=== PATIENT | female | born 1940 | race Caucasian/White ===

== ENCOUNTER 2019-07-21 08:13 | Inpatient (IN) | payer MEDICARE, MEDICAID ==
[~2019-07-21] VITALS: Ht 162.6 cm; Wt 63.6 kg
[2019-07-21 08:37] LABS: BASOPHILS # (AUTO) 0.1 X10'3 (0-0.2); BASOPHILS % (AUTO) 1.2 % (0-1); EOSINOPHILS # (AUTO) 0.2 X10'3 (0-0.9); EOSINOPHILS % (AUTO) 3.3 % (0-6); HEMATOCRIT 35.6 % (35.0-45.0); HEMOGLOBIN 11.7 g/dl (12.0-16.0); LYMPHOCYTES % (AUTO) 26.5 % (21-51); MEAN CORPUSCULAR HEMOGLOBIN 25.7 PG (27.0-31.0); MEAN CORPUSCULAR HGB CONC 32.9 g/dL (33.0-36.5); MEAN CORPUSCULAR VOLUME 78.2 FL (78-98); MEAN PLATELET VOLUME 6.6 FL (7.4-10.4); MONOCYTES # (AUTO) 1.4 X10'3 (0-0.9); MONOCYTES % (AUTO) 19.3 % (2-12); NEUTROPHILS # (AUTO) 3.7 X10'3 (1.8-7.7); NEUTROPHILS % (AUTO) 49.7 % (42-75); PLATELET COUNT 368 X10'3 (140-440); RED BLOOD COUNT 4.55 X10'6 (4.20-5.60); RED CELL DISTRIBUTION WIDTH 17.4 % (11.5-14.5); WHITE BLOOD COUNT 7.4 X10'3 (4.5-11.0)
[2019-07-21 08:48] LABS: CLARITY,URINE CLOUDY (Clear); COLOR,URINE YELLOW (Yellow); GLUCOSE, URINE NEGATIVE (Neg); KETONES,URINE TRACE mg/dl (Neg); LEUKOCYTE ESTERASE ,URINE NEGATIVE (Neg); NITRITES, URINE NEGATIVE (Neg); OCCULT BLOOD,URINE NEGATIVE (Neg); PROTEIN,URINE NEGATIVE (Neg); UROBILINOGEN,URINE 0.2 E.U/dL (0.2-1.0)
[2019-07-21 08:48] LABS: PARTIAL THROMBOPLASTIN TIME 32 SECONDS (22-32)
[2019-07-21 08:51] LABS: ALANINE AMINOTRANSFERASE 15 U/L (12-78); ALBUMIN/GLOBULIN RATIO 0.9 (1.1-1.5); ALKALINE PHOSPHATASE 75 IU/L (46-116); ANION GAP 5 (8-16); ASPARTATE AMINO TRANSFERASE 14 U/L (10-37); BILIRUBIN,TOTAL 0.2 MG/DL (0.1-1.0); BLOOD UREA NITROGEN 16 MG/DL (7-18); BUN/CREATININE RATIO 14.3 (6.6-38.0); CALCIUM 8.5 MG/DL (8.5-10.1); CHLORIDE 97 MMOL/L (99-107); CREATININE 1.12 MG/DL (0.40-0.90); GLUCOSE 85 MG/DL (70-104); POTASSIUM 4.8 MMOL/L (3.5-5.1); SODIUM 131 MMOL/L (135-145); TOTAL PROTEIN 6.5 G/DL (6.4-8.2); eGFR 47 ML/MIN
[2019-07-21 08:52] LABS: ETHANOL < 0.010 GM/DL (0.0-0.010)
[2019-07-21 08:52] LABS: UA COLLECTION TYPE CLN CATCH MIDSTREAM; URINE AMPHETAMINE SCREEN NEGATIVE (Neg); URINE BARBITUATE SCREEN POSITIVE (Neg); URINE BENZODIAZEPINES SCREEN NEGATIVE (Neg); URINE CANNABINOID SCREEN NEGATIVE (Neg); URINE COCAINE SCREEN NEGATIVE (Neg); URINE METHADONE SCREEN NEGATIVE (Neg); URINE OPIATE SCREEN NEGATIVE (Neg); URINE PHENCYCLIDINE SCREEN NEGATIVE (Neg)
[2019-07-21 08:55] LABS: BACTERIA,URINE 3+ /HPF (Neg); RBC,URINE NONE SEEN /HPF (0-2); RENAL CELLS, URINE FEW /HPF; SQUAMOUS EPITHELIAL CELL,UR MANY /LPF (FEW); WBC,URINE 0-4 /HPF (0-4)
--- NOTE | 2019-07-21 09:18 | NUR ---
for any questions call Katia [phone]. she is the admin for pts facility and will picker and packer pt if dcd home
[2019-07-21] MEDS ORDERED: aspirin 325mg tablet PO ONE (09:20)
--- NOTE | 2019-07-21 10:04 | NUR ---
Spoke to Katia informed her of pt. status and that pt. will be admitted.
[2019-07-21] MEDS ORDERED: mag hydrox/Alum hydrox/simeth 30ml oral suspension PO PRN (10:10)
[2019-07-21] MEDS ORDERED: magnesium Cl slow-release 64mg tablet PO PRN (10:10)
[2019-07-21] MEDS ORDERED: acetaminophen 325mg tablet PO PRN ×2 (10:10)
[2019-07-21] MEDS ORDERED: potassium Cl 20 mEq SR tablet PO PRN ×2 (10:10)
[2019-07-21] MEDS ORDERED: HYDROcodone/acetaminophen 5mg/325mg tablet PO PRN (10:10)
[2019-07-21] MEDS ORDERED: magnesium hydroxide 30ml (MOM) UD suspension PO PRN (10:10)
[2019-07-21] MEDS ORDERED: magnesium 2GM in 50ml NS 50 ML IV PRN (10:10)
[2019-07-21] MEDS ORDERED: magnesium 4gm in 100ml NS 100 ML IV PRN (10:10)
[2019-07-21] MEDS ORDERED: ondansetron/PF 4mg/2ml inj IV PRN (10:10)
[2019-07-21] MEDS ORDERED: potassium CL 10mEq/100ml bag 100 ML IV PRN ×2 (10:10)
[2019-07-21] MEDS ORDERED: DIVA-74 PO (10:41)
[2019-07-21] MEDS ORDERED: GABA-532 PO (10:41)
[2019-07-21] MEDS ORDERED: OMEP20CA15 PO (10:41)
[2019-07-21] MEDS ORDERED: CARV6.2555 PO (10:41)
[2019-07-21] MEDS ORDERED: LORA-660 PO (10:41)
[2019-07-21] MEDS ORDERED: SYN0.088T PO (10:41)
[2019-07-21] MEDS ORDERED: LACT1CAP57 PO (10:41)
[2019-07-21] MEDS ORDERED: DOCU100C40 PO (10:41)
[2019-07-21] MEDS ORDERED: PRIM50TA27 PO (10:41)
[2019-07-21] MEDS ORDERED: IPRA4AER IH (10:58)
[2019-07-21] MEDS ORDERED: GABA-534 PO (10:58)
[2019-07-21] MEDS ORDERED: LISI-600 PO (10:58)
[2019-07-21] MEDS ORDERED: OLAN5TAB5 PO (10:58)
[2019-07-21] MEDS ORDERED: CYCL-394 PO (10:58)
[2019-07-21] MEDS ORDERED: FLUT1DIS INH (10:58)
[2019-07-21] MEDS ORDERED: ACET650S13 PO (10:58)
[2019-07-21] MEDS ORDERED: POLY17PO10 PO (10:58)
[2019-07-21] MEDS ORDERED: ROPI1TAB6 PO (10:58)
[2019-07-21] MEDS ORDERED: TRAZ-251 PO (10:58)
[2019-07-21] MEDS ORDERED: TRAM50TA2 PO (10:58)
[2019-07-21 11:00] VITALS: BP 116/55
[2019-07-21] MEDS ORDERED: MELA5TAB12 PO (11:00)
[2019-07-21] MEDS ORDERED: LISI-643 PO (11:33)
[2019-07-21] MEDS ORDERED: CARV12.529 PO (11:33)
[2019-07-21] MEDS ORDERED: LEVO25TA2 PO (11:33)
[2019-07-21 12:42] LABS: CHOL/HDL RATIO 3.4 (0.00-4.99); CHOLESTEROL 147 MG/DL (0-200); HDL CHOLESTEROL 43 MG/DL (35-60); LDL CHOLESTEROL 88 MG/DL (50-100); TRIGLYCERIDES 117 MG/DL (20-135)
[2019-07-21] MEDS: atorvastatin 20mg tablet PO SCH (13:44)
[2019-07-21] MEDS: divalproex sodium 250mg tablet PO SCH ×2 (13:44→20:58)
[2019-07-21] MEDS: cyclobenzaprine 10mg tablet PO SCH ×2 (13:44→20:56)
[2019-07-21] MEDS: nystatin 15 GM powder TP SCH ×2 (13:45→21:01)
[2019-07-21] MEDS: traMADol 50MG tablet PO SCH ×2 (13:45→20:57)
[2019-07-21] MEDS ORDERED: albuterol 2.5 MG/3 ML nebule NEB SCH (15:00)
[2019-07-21] MEDS: ipratropium/albuterol 3ml nebule NEB SCH ×2 (15:00→19:45)
[2019-07-21] MEDS: primidone 50mg tablet PO SCH ×2 (16:04→23:39)
--- NOTE | 2019-07-21 17:23 | NUR ---
Tele Neuro consult done.
[2019-07-21 18:00] VITALS: BP 125/72
--- NOTE | 2019-07-21 18:30 | NUR ---
Problems reprioritized. Patient report given, questions answered & plan of care reviewed with Kaycee BEDOYA.
--- NOTE | 2019-07-21 18:31 | NUR ---
Patient in room ORTHO 4012. I have received report from Taylor BEDOYA and had the opportunity to ask questions and assume patient care.
[2019-07-21] MEDS: budesonide 0.5mg/2ml UD nebule IH SCH (19:45)
[2019-07-21] MEDS ORDERED: gabapentin 300mg capsule PO SCH (20:00)
[2019-07-21] MEDS ORDERED: non-formulary drug (Fluticasone/Salmeterol (Advair 100-50 Diskus) 1 PUFFS) INH SCH (20:00)
[2019-07-21] MEDS: docusate sod 100mg capsule PO SCH (20:56)
[2019-07-21] MEDS: carVEDilol 12.5mg tablet PO SCH (20:56)
[2019-07-21] MEDS: gabapentin 400mg capsule PO SCH (20:58)
[2019-07-21] MEDS: Melatonin 3mg tablet PO SCH (20:59)
[2019-07-21] MEDS: traZODone 50mg tablet PO SCH (21:00)
[2019-07-21] MEDS: ROPINIRole 1mg tablet PO SCH (21:00)
[2019-07-21] MEDS ORDERED: gabapentin 400mg capsule PO SCH (21:00)
[2019-07-21] MEDS: K and/or MAG REPLACEMENT MC SCH (21:08)
[2019-07-21 22:00] VITALS: BP 97/61
[2019-07-21] MEDS: HYDROcodone/acetaminophen 10/325mg tab PO PRN (22:58)
[2019-07-22] VITALS (8 sets, daily range): BP systolic 94–136; BP diastolic 45–75
[2019-07-22] MEDS: traMADol 50MG tablet PO SCH ×4 (02:33→20:34)
[2019-07-22] MEDS: cyclobenzaprine 10mg tablet PO SCH ×4 (02:34→20:33)
[2019-07-22 03:36] LABS: COLOR,URINE YELLOW (Yellow); UA COLLECTION TYPE STRAIGHT CATH
[2019-07-22 03:37] LABS: CLARITY,URINE SLIGHTLY CLOUDY (Clear); GLUCOSE, URINE NEGATIVE (Neg); KETONES,URINE NEGATIVE (Neg); LEUKOCYTE ESTERASE ,URINE NEGATIVE (Neg); NITRITES, URINE NEGATIVE (Neg); OCCULT BLOOD,URINE NEGATIVE (Neg); PROTEIN,URINE NEGATIVE (Neg); UROBILINOGEN,URINE 0.2 E.U/dL (0.2-1.0)
[2019-07-22 03:38] LABS: BACTERIA,URINE 3+ /HPF (Neg); RBC,URINE NONE SEEN /HPF (0-2); SQUAMOUS EPITHELIAL CELL,UR NONE SEEN /LPF (FEW); WBC CLUMPS,URINE FEW /HPF (NEGATIVE); WBC,URINE 0-4 /HPF (0-4)
[2019-07-22] MEDS: ipratropium/albuterol 3ml nebule NEB SCH ×4 (04:27→20:20)
[2019-07-22 05:47] LABS: BASOPHILS # (AUTO) 0.1 X10'3 (0-0.2); BASOPHILS % (AUTO) 1.1 % (0-1); EOSINOPHILS # (AUTO) 0.2 X10'3 (0-0.9); EOSINOPHILS % (AUTO) 4.1 % (0-6); HEMATOCRIT 34.1 % (35.0-45.0); LYMPHOCYTES % (AUTO) 33.5 % (21-51); MEAN CORPUSCULAR HEMOGLOBIN 25.4 PG (27.0-31.0); MEAN CORPUSCULAR HGB CONC 32.3 g/dL (33.0-36.5); MEAN CORPUSCULAR VOLUME 78.5 FL (78-98); MEAN PLATELET VOLUME 6.6 FL (7.4-10.4); MONOCYTES # (AUTO) 1.2 X10'3 (0-0.9); MONOCYTES % (AUTO) 19.9 % (2-12); NEUTROPHILS # (AUTO) 2.4 X10'3 (1.8-7.7); NEUTROPHILS % (AUTO) 41.4 % (42-75); PLATELET COUNT 343 X10'3 (140-440); RED BLOOD COUNT 4.34 X10'6 (4.20-5.60); RED CELL DISTRIBUTION WIDTH 16.9 % (11.5-14.5); WHITE BLOOD COUNT 5.9 X10'3 (4.5-11.0)
[2019-07-22] MEDS: HYDROcodone/acetaminophen 10/325mg tab PO PRN ×3 (05:47→16:11)
[2019-07-22 05:57] LABS: ALBUMIN 2.5 G/DL (3.4-5.0); ANION GAP 3 (8-16); BLOOD UREA NITROGEN 20 MG/DL (7-18); BUN/CREATININE RATIO 29.4 (6.6-38.0); CALCIUM 8.7 MG/DL (8.5-10.1); CHLORIDE 100 MMOL/L (99-107); CREATININE 0.68 MG/DL (0.40-0.90); GLUCOSE 75 MG/DL (70-104); MAGNESIUM 2.1 MG/DL (1.5-2.4); POTASSIUM 5.6 MMOL/L (3.5-5.1); SODIUM 130 MMOL/L (135-145); TOTAL CARBON DIOXIDE 26.7 MMOL/L (24-32); eGFR 84 ML/MIN
--- NOTE | 2019-07-22 06:35 | NUR ---
Problems reprioritized. Patient report given, questions answered & plan of care reviewed with Taylor BEDOYA.
[2019-07-22] MEDS: K and/or MAG REPLACEMENT MC SCH ×2 (08:00→20:00)
[2019-07-22] MEDS: atorvastatin 20mg tablet PO SCH (08:01)
[2019-07-22] MEDS: gabapentin 300mg capsule PO SCH ×2 (08:01→14:54)
[2019-07-22] MEDS: divalproex sodium 250mg tablet PO SCH ×3 (08:02→20:34)
[2019-07-22] MEDS: primidone 50mg tablet PO SCH ×3 (08:02→23:51)
[2019-07-22] MEDS: pantoprazole 40mg Tablet.DR PO SCH (08:02)
[2019-07-22] MEDS: docusate sod 100mg capsule PO SCH ×2 (08:02→20:32)
[2019-07-22] MEDS: lactobacillus rhamnosus 10,000 MMU CELLS/CAPSULE PO SCH (08:03)
[2019-07-22] MEDS: levoTHYROXINE 25mcg tablet PO SCH (08:03)
[2019-07-22] MEDS: loratadine 10mg tablet PO SCH (08:03)
[2019-07-22] MEDS: nystatin 15 GM powder TP SCH ×3 (08:04→20:37)
[2019-07-22] MEDS: aspirin 325mg tablet PO SCH (08:04)
[2019-07-22] MEDS: OLANZapine 5mg rapidly disint. tablet PO SCH (08:04)
[2019-07-22] MEDS: enoxaparin 40mg/0.4ml syringe SUBCUT SCH (08:04)
[2019-07-22] MEDS: polyethylene glycol 3350 17gm powd pack PO SCH (08:05)
[2019-07-22] MEDS: carVEDilol 12.5mg tablet PO SCH ×2 (08:07→20:00)
[2019-07-22] MEDS: lisinopril 10 MG tablet PO SCH (08:07)
[2019-07-22] MEDS: budesonide 0.5mg/2ml UD nebule IH SCH ×2 (08:37→20:20)
--- NOTE | 2019-07-22 12:00 | NUR ---
Patient in room ORTHO 4012. I have received report from REESE BEDOYA and had the opportunity to ask questions and assume patient care.
--- NOTE | 2019-07-22 12:09 | NUR ---
Problems reprioritized. Patient report given, questions answered & plan of care reviewed with Shameka BEDOYA.
--- NOTE | 2019-07-22 17:50 | NUR ---
DOWN TO CT
--- NOTE | 2019-07-22 18:05 | NUR ---
Problems reprioritized. Patient report given, questions answered & plan of care reviewed with MELODY BEDOYA.
--- NOTE | 2019-07-22 18:10 | NUR ---
Patient in room ORTHO 4012. I have received report from Shameka BEDOYA and had the opportunity to ask questions and assume patient care.
[2019-07-22] MEDS: traZODone 50mg tablet PO SCH (20:35)
[2019-07-22] MEDS: Melatonin 3mg tablet PO SCH (20:35)
[2019-07-22] MEDS: gabapentin 400mg capsule PO SCH (20:36)
[2019-07-22] MEDS: ROPINIRole 1mg tablet PO SCH (20:36)
[2019-07-23 02:00] VITALS: BP 96/48
[2019-07-23] MEDS: traMADol 50MG tablet PO SCH ×4 (02:16→21:01)
[2019-07-23] MEDS: ipratropium/albuterol 3ml nebule NEB SCH ×4 (02:17→20:22)
[2019-07-23] MEDS: cyclobenzaprine 10mg tablet PO SCH ×3 (02:17→13:59)
[2019-07-23 05:13] LABS: ALBUMIN 2.6 G/DL (3.4-5.0); ANION GAP 5 (8-16); BLOOD UREA NITROGEN 28 MG/DL (7-18); BUN/CREATININE RATIO 36.4 (6.6-38.0); CHLORIDE 95 MMOL/L (99-107); CREATININE 0.77 MG/DL (0.40-0.90); GLUCOSE 94 MG/DL (70-104); POTASSIUM 5.5 MMOL/L (3.5-5.1); SODIUM 129 MMOL/L (135-145); TOTAL CARBON DIOXIDE 29.2 MMOL/L (24-32); eGFR 73 ML/MIN
[2019-07-23 05:15] LABS: BASOPHILS # (AUTO) 0.1 X10'3 (0-0.2); BASOPHILS % (AUTO) 0.8 % (0-1); EOSINOPHILS # (AUTO) 0.4 X10'3 (0-0.9); EOSINOPHILS % (AUTO) 5.8 % (0-6); HEMATOCRIT 32.9 % (35.0-45.0); HEMOGLOBIN 10.8 g/dl (12.0-16.0); LYMPHOCYTES # (AUTO) 1.8 X10'3 (1.1-4.8); MEAN CORPUSCULAR HEMOGLOBIN 25.7 PG (27.0-31.0); MEAN CORPUSCULAR HGB CONC 32.9 g/dL (33.0-36.5); MEAN PLATELET VOLUME 6.6 FL (7.4-10.4); MONOCYTES # (AUTO) 1.4 X10'3 (0-0.9); MONOCYTES % (AUTO) 20.4 % (2-12); NEUTROPHILS # (AUTO) 3.3 X10'3 (1.8-7.7); PLATELET COUNT 358 X10'3 (140-440); RED BLOOD COUNT 4.21 X10'6 (4.20-5.60); RED CELL DISTRIBUTION WIDTH 17.2 % (11.5-14.5); WHITE BLOOD COUNT 6.9 X10'3 (4.5-11.0)
[2019-07-23] MEDS: HYDROcodone/acetaminophen 10/325mg tab PO PRN (05:20)
[2019-07-23 06:00] VITALS: BP 142/67
--- NOTE | 2019-07-23 06:20 | NUR ---
RECEIVED REPORT FROM ELKE OLIVER
--- NOTE | 2019-07-23 06:23 | NUR ---
Problems reprioritized. Patient report given, questions answered & plan of care reviewed with Celia BEDOYA.
[2019-07-23 06:50] LABS: ANISOCYTOSIS 1+; BURR CELLS FEW; MICROCYTOSIS 1+; PLATELET ESTIMATE NORMAL; SCHISTOCYTES FEW; TOTAL CELLS COUNTED 100
[2019-07-23] MEDS: budesonide 0.5mg/2ml UD nebule IH SCH (06:59)
[2019-07-23] MEDS: K and/or MAG REPLACEMENT MC SCH ×2 (07:06→20:00)
[2019-07-23 07:15] LABS: RPR Non Reactive (Non Reactive)
[2019-07-23] MEDS: polyethylene glycol 3350 17gm powd pack PO SCH (07:23)
[2019-07-23] MEDS: pantoprazole 40mg Tablet.DR PO SCH (07:24)
[2019-07-23] MEDS: loratadine 10mg tablet PO SCH (07:24)
[2019-07-23] MEDS: docusate sod 100mg capsule PO SCH ×2 (07:24→21:02)
[2019-07-23] MEDS: carVEDilol 12.5mg tablet PO SCH ×2 (07:25→21:02)
[2019-07-23] MEDS: divalproex sodium 250mg tablet PO SCH ×3 (07:25→21:00)
[2019-07-23] MEDS: lactobacillus rhamnosus 10,000 MMU CELLS/CAPSULE PO SCH (07:25)
[2019-07-23] MEDS: atorvastatin 20mg tablet PO SCH (07:27)
[2019-07-23] MEDS: levoTHYROXINE 25mcg tablet PO SCH (07:28)
[2019-07-23] MEDS: gabapentin 300mg capsule PO SCH ×2 (07:28→13:59)
[2019-07-23] MEDS: primidone 50mg tablet PO SCH ×2 (07:28→15:57)
[2019-07-23] MEDS: lisinopril 10 MG tablet PO SCH (07:29)
[2019-07-23] MEDS: OLANZapine 5mg rapidly disint. tablet PO SCH (07:29)
[2019-07-23] MEDS: enoxaparin 40mg/0.4ml syringe SUBCUT SCH (07:30)
[2019-07-23] MEDS: nystatin 15 GM powder TP SCH ×3 (07:30→21:07)
[2019-07-23] MEDS: aspirin 325mg tablet PO SCH (07:34)
[2019-07-23 10:00] VITALS: BP 116/48
--- NOTE | 2019-07-23 13:50 | NUR ---
gave pt morning medications, pt has been super sleepy and not able to eat or work well w/physical therapy, continue to monitor and educate pt on her medications, and notified hospitalist
[2019-07-23 14:00] VITALS: BP 97/42
--- NOTE | 2019-07-23 16:08 | NUR ---
gave report to power valencia
[2019-07-23] MEDS: normal saline 1000ml 1,000 ML IV SCH (16:50)
[2019-07-23 18:00] VITALS: BP 117/55
[2019-07-23] MEDS: Melatonin 3mg tablet PO SCH (21:01)
[2019-07-23] MEDS: traZODone 50mg tablet PO SCH (21:01)
[2019-07-23] MEDS: ROPINIRole 1mg tablet PO SCH (21:01)
[2019-07-23] MEDS: gabapentin 400mg capsule PO SCH (21:02)
[2019-07-23 22:00] VITALS: BP 129/53
[2019-07-24] MEDS: primidone 50mg tablet PO SCH ×4 (00:45→23:25)
[2019-07-24] MEDS: traMADol 50MG tablet PO SCH ×4 (01:00→20:20)
[2019-07-24] MEDS: ipratropium/albuterol 3ml nebule NEB SCH ×4 (02:17→20:18)
--- NOTE | 2019-07-24 06:32 | NUR ---
Problems reprioritized. Patient report given, questions answered & plan of care reviewed with ELKE HO.
[2019-07-24 06:34] LABS: BASOPHILS % (AUTO) 0.6 % (0-1); EOSINOPHILS # (AUTO) 0.3 X10'3 (0-0.9); EOSINOPHILS % (AUTO) 4.7 % (0-6); HEMATOCRIT 33.2 % (35.0-45.0); HEMOGLOBIN 10.8 g/dl (12.0-16.0); LYMPHOCYTES # (AUTO) 1.5 X10'3 (1.1-4.8); LYMPHOCYTES % (AUTO) 21.3 % (21-51); MEAN CORPUSCULAR HEMOGLOBIN 25.2 PG (27.0-31.0); MEAN CORPUSCULAR HGB CONC 32.6 g/dL (33.0-36.5); MEAN CORPUSCULAR VOLUME 77.3 FL (78-98); MEAN PLATELET VOLUME 6.8 FL (7.4-10.4); MONOCYTES # (AUTO) 1.2 X10'3 (0-0.9); MONOCYTES % (AUTO) 16.9 % (2-12); NEUTROPHILS # (AUTO) 4.1 X10'3 (1.8-7.7); NEUTROPHILS % (AUTO) 56.5 % (42-75); PLATELET COUNT 358 X10'3 (140-440); RED BLOOD COUNT 4.29 X10'6 (4.20-5.60); RED CELL DISTRIBUTION WIDTH 17.2 % (11.5-14.5); WHITE BLOOD COUNT 7.2 X10'3 (4.5-11.0)
[2019-07-24 06:49] LABS: ALBUMIN 2.5 G/DL (3.4-5.0); ANION GAP 2 (8-16); BLOOD UREA NITROGEN 21 MG/DL (7-18); BUN/CREATININE RATIO 31.8 (6.6-38.0); CALCIUM 8.8 MG/DL (8.5-10.1); CHLORIDE 101 MMOL/L (99-107); CREATININE 0.66 MG/DL (0.40-0.90); GLUCOSE 83 MG/DL (70-104); MAGNESIUM 2.1 MG/DL (1.5-2.4); SODIUM 133 MMOL/L (135-145); eGFR 87 ML/MIN
[2019-07-24 07:14] VITALS: BP 124/48
[2019-07-24] MEDS: gabapentin 300mg capsule PO SCH ×2 (07:43→13:58)
[2019-07-24] MEDS: polyethylene glycol 3350 17gm powd pack PO SCH (07:43)
[2019-07-24] MEDS: atorvastatin 20mg tablet PO SCH (07:44)
[2019-07-24] MEDS: loratadine 10mg tablet PO SCH (07:44)
[2019-07-24] MEDS: aspirin 325mg tablet PO SCH (07:44)
[2019-07-24] MEDS: carVEDilol 12.5mg tablet PO SCH ×2 (07:44→20:16)
[2019-07-24] MEDS: docusate sod 100mg capsule PO SCH ×2 (07:44→20:00)
[2019-07-24] MEDS: lisinopril 10 MG tablet PO SCH (07:44)
[2019-07-24] MEDS: pantoprazole 40mg Tablet.DR PO SCH (07:44)
[2019-07-24] MEDS: levoTHYROXINE 25mcg tablet PO SCH (07:44)
[2019-07-24] MEDS: K and/or MAG REPLACEMENT MC SCH ×2 (07:45→20:00)
[2019-07-24] MEDS: enoxaparin 40mg/0.4ml syringe SUBCUT SCH (07:45)
[2019-07-24] MEDS: nystatin 15 GM powder TP SCH ×3 (07:45→20:21)
[2019-07-24] MEDS: lactobacillus rhamnosus 10,000 MMU CELLS/CAPSULE PO SCH (07:45)
[2019-07-24] MEDS: divalproex sodium 250mg tablet PO SCH ×3 (07:47→20:15)
[2019-07-24] MEDS: OLANZapine 5mg rapidly disint. tablet PO SCH (07:47)
[2019-07-24] MEDS: budesonide 0.5mg/2ml UD nebule IH SCH ×2 (08:04→20:18)
[2019-07-24 12:02] VITALS: BP 135/58
[2019-07-24] MEDS: normal saline 1000ml 1,000 ML IV SCH (12:19)
[2019-07-24 16:08] VITALS: BP 124/74
[2019-07-24 18:00] VITALS: BP 125/54
--- NOTE | 2019-07-24 18:20 | NUR ---
Patient in room ORTHO 4012. I have received report from power Marley and had the opportunity to ask questions and assume patient care.
[2019-07-24] MEDS: traZODone 50mg tablet PO SCH (20:16)
[2019-07-24] MEDS: ROPINIRole 1mg tablet PO SCH (20:16)
[2019-07-24] MEDS: gabapentin 400mg capsule PO SCH (20:16)
[2019-07-24] MEDS: Melatonin 3mg tablet PO SCH (20:21)
[2019-07-24 22:00] VITALS: BP 128/35
[2019-07-25] MEDS: traMADol 50MG tablet PO SCH ×3 (02:15→13:19)
[2019-07-25] MEDS: ipratropium/albuterol 3ml nebule NEB SCH ×2 (02:29→09:23)
[2019-07-25 04:15] LABS: BASOPHILS # (AUTO) 0.1 X10'3 (0-0.2); BASOPHILS % (AUTO) 0.9 % (0-1); EOSINOPHILS # (AUTO) 0.4 X10'3 (0-0.9); EOSINOPHILS % (AUTO) 4.4 % (0-6); HEMATOCRIT 34.5 % (35.0-45.0); HEMOGLOBIN 11.3 g/dl (12.0-16.0); LYMPHOCYTES # (AUTO) 1.6 X10'3 (1.1-4.8); LYMPHOCYTES % (AUTO) 19.1 % (21-51); MEAN CORPUSCULAR HEMOGLOBIN 25.4 PG (27.0-31.0); MEAN CORPUSCULAR HGB CONC 32.6 g/dL (33.0-36.5); MEAN CORPUSCULAR VOLUME 77.8 FL (78-98); MEAN PLATELET VOLUME 6.9 FL (7.4-10.4); MONOCYTES # (AUTO) 1.4 X10'3 (0-0.9); MONOCYTES % (AUTO) 17.1 % (2-12); NEUTROPHILS # (AUTO) 4.7 X10'3 (1.8-7.7); NEUTROPHILS % (AUTO) 58.5 % (42-75); PLATELET COUNT 369 X10'3 (140-440); RED BLOOD COUNT 4.44 X10'6 (4.20-5.60); RED CELL DISTRIBUTION WIDTH 17.2 % (11.5-14.5); WHITE BLOOD COUNT 8.1 X10'3 (4.5-11.0)
[2019-07-25 04:21] LABS: ALBUMIN 2.7 G/DL (3.4-5.0); ANION GAP 3 (8-16); BLOOD UREA NITROGEN 23 MG/DL (7-18); BUN/CREATININE RATIO 34.8 (6.6-38.0); CALCIUM 9.1 MG/DL (8.5-10.1); CHLORIDE 98 MMOL/L (99-107); CREATININE 0.66 MG/DL (0.40-0.90); GLUCOSE 87 MG/DL (70-104); MAGNESIUM 1.8 MG/DL (1.5-2.4); POTASSIUM 5.7 MMOL/L (3.5-5.1); SODIUM 131 MMOL/L (135-145); TOTAL CARBON DIOXIDE 30.5 MMOL/L (24-32); eGFR 87 ML/MIN
--- NOTE | 2019-07-25 06:15 | NUR ---
Problems reprioritized. Patient report given, questions answered & plan of care reviewed with ELKE HO.
[2019-07-25 06:26] VITALS: BP 116/66
[2019-07-25 06:45] LABS: ANISOCYTOSIS 1+; MICROCYTOSIS 1+; PLATELET ESTIMATE NORMAL; TOTAL CELLS COUNTED 100
[2019-07-25] MEDS: polyethylene glycol 3350 17gm powd pack PO SCH (08:00)
[2019-07-25] MEDS: docusate sod 100mg capsule PO SCH (08:00)
[2019-07-25] MEDS: nystatin 15 GM powder TP SCH ×2 (08:00→13:00)
[2019-07-25] MEDS: K and/or MAG REPLACEMENT MC SCH (08:00)
[2019-07-25] MEDS: OLANZapine 5mg rapidly disint. tablet PO SCH (08:20)
[2019-07-25] MEDS: enoxaparin 40mg/0.4ml syringe SUBCUT SCH (08:20)
[2019-07-25] MEDS: divalproex sodium 250mg tablet PO SCH ×2 (08:20→13:19)
[2019-07-25] MEDS: gabapentin 300mg capsule PO SCH ×2 (08:20→13:19)
[2019-07-25] MEDS: levoTHYROXINE 25mcg tablet PO SCH (08:20)
[2019-07-25] MEDS: primidone 50mg tablet PO SCH (08:20)
[2019-07-25] MEDS: lactobacillus rhamnosus 10,000 MMU CELLS/CAPSULE PO SCH (08:21)
[2019-07-25] MEDS: loratadine 10mg tablet PO SCH (08:21)
[2019-07-25] MEDS: atorvastatin 20mg tablet PO SCH (08:21)
[2019-07-25] MEDS: lisinopril 10 MG tablet PO SCH (08:21)
[2019-07-25] MEDS: aspirin 325mg tablet PO SCH (08:21)
[2019-07-25] MEDS: carVEDilol 12.5mg tablet PO SCH (08:22)
[2019-07-25] MEDS: normal saline 1000ml 1,000 ML IV SCH (08:22)
[2019-07-25] MEDS: pantoprazole 40mg Tablet.DR PO SCH (08:22)
[2019-07-25] MEDS: budesonide 0.5mg/2ml UD nebule IH SCH (09:23)
[2019-07-25 09:48] VITALS: BP 128/54
--- NOTE | 2019-07-25 11:34 | NUR ---
Initial: Pt admit w/ possible CVA, AMS, and R side paraesthesias per MD. Pt remains non-verbal per MD note; hx psychosis per EMR. Advanced to pureed/thin/heart healthy diet per ARCHITECTURE CONSULTANT/MD recs r/t absence of teeth and PO 75% avg meals meeting needs. LBM 07/23. Receiving electrolyte replacement per protocol. No nutrition concerns at this time. Will continue to monitor. Rec: 1. continue pureed/thin liquid/heart healthy diet per ARCHITECTURE CONSULTANT/MD 2. bowel care as needed 3. wt per rx Addendum: 07/25/19 at [address] Amended: Links added.
[2019-07-25] MEDS ORDERED: TRAM50TA2 PO (13:21)
== END 2019-07-25 14:40 | DRG 91 ==
LOC: ER 08:14 → ED HOLD 10:07 → ORTHO 4S 11:03
PROVIDERS: ADMIT Internal Medicine; ATTEND Family Medicine
DX: G92 Toxic encephalopathy (principal); J96.90 Respiratory failure, unspecified, unspecified whether with hypoxia or hypercapnia; R47.01 Aphasia; J44.9 Chronic obstructive pulmonary disease, unspecified; G89.29 Other chronic pain; M54.5 Low back pain; I10 Essential (primary) hypertension; R29.810 Facial weakness; E03.9 Hypothyroidism, unspecified; G62.9 Polyneuropathy, unspecified; K21.9 Gastro-esophageal reflux disease without esophagitis; G25.81 Restless legs syndrome; E78.5 Hyperlipidemia, unspecified; R13.0 Aphagia; E78.00 Pure hypercholesterolemia, unspecified; F29 Unspecified psychosis not due to a substance or known physiological condition; I25.10 Atherosclerotic heart disease of native coronary artery without angina pectoris; Z88.6 Allergy status to analgesic agent; Z88.5 Allergy status to narcotic agent; Z86.73 Personal history of transient ischemic attack (TIA), and cerebral infarction without residual deficits; Z87.891 Personal history of nicotine dependence; Z88.7 Allergy status to serum and vaccine; I25.2 Old myocardial infarction; Z88.8 Allergy status to other drugs, medicaments and biological substances; Z79.01 Long term (current) use of anticoagulants
CPT/HCPCS: 36415; 70450; 70551; 71045; 72125; 72128; 72131; 73030; 80048; 80053; 80061; 80305; 80320; 81001; 82140; 82607; 82948; 83735; 84300; 84443; 85025; 85610; 85730; 86592; 87077; 87081; 87088; 87186; 92508; 92616; 93005; 93306; 93880; 94640; 94760; 97110; 97112; 97116; 97161; 97530; 99285; G0378; J1650; J7030; J7626

== ENCOUNTER 2019-10-13 09:42 | Emergency (ER) | payer MEDICARE, MEDICAID ==
[~2019-10-13] VITALS: Ht 124.5 cm; Wt 72.7 kg
[~2019-10-13 09:42] MED LIST: ACET650S13 PO; CARV12.529 PO; CYCL-394 PO; DIVA-74 PO; DOCU100C40 PO; FLUT1DIS INH; GABA-532 PO; GABA-534 PO; IPRA4AER IH; LACT1CAP57 PO; LEVO25TA2 PO; LISI-643 PO; LORA-660 PO; MELA5TAB12 PO; OLAN5TAB5 PO; OMEP20CA15 PO; POLY17PO10 PO; PRIM50TA27 PO; ROPI1TAB6 PO; TRAM50TA2 PO; TRAZ-251 PO
[2019-10-13] MEDS ORDERED: normal saline 1000ML IV soln IVB ONE (11:30)
--- NOTE | 2019-10-13 12:51 | NUR ---
Phoned the front desk administrator at the facility where the patient resides to arrange transport to take her back home. She asked if we have evaluated the patient's abdominal bloating. Pt has not reported the bloating but when asked about it she states "yes, I do feel bloated today." Provider Kya made aware of the above concerns.
--- NOTE | 2019-10-13 13:32 | NUR ---
Pt's caregiver from the facility will be here in a few minutes to transport back to the facility where she resides. Pt assisted via w/c to the restroom to void prior to discharge home.
[2019-10-13 13:57] VITALS: BP 119/72
== END 2019-10-13 13:40 | disposition home or self-care (01) ==
LOC: ER 09:42
DX: M84.374A Stress fracture, right foot, initial encounter for fracture (principal); I95.9 Hypotension, unspecified; J44.9 Chronic obstructive pulmonary disease, unspecified; G89.29 Other chronic pain; Z88.0 Allergy status to penicillin; Z88.5 Allergy status to narcotic agent; Z88.8 Allergy status to other drugs, medicaments and biological substances; Z79.899 Other long term (current) drug therapy; W18.30XA Fall on same level, unspecified, initial encounter; Y93.89 Activity, other specified; Y92.89 Other specified places as the place of occurrence of the external cause; Y99.8 Other external cause status
CPT/HCPCS: 73630; 96360; 99285; J7030

== ENCOUNTER 2019-11-20 16:44 | Emergency (ER) | payer MEDICARE, MEDICAID ==
[~2019-11-20] VITALS: Ht 154.9 cm; Wt 68.2 kg
[~2019-11-20 16:44] MED LIST changes: +ACET-75 PO; -ACET650S13 PO; +AMLO-93 PO; +ATOR20TA66 PO; +CALC-1074 PO; -GABA-534 PO; -IPRA4AER IH; -LISI-643 PO; -OLAN5TAB5 PO; -TRAM50TA2 PO; -TRAZ-251 PO
[2019-11-20 17:22] LABS: BASOPHILS # (AUTO) 0.1 X10'3 (0-0.2); BASOPHILS % (AUTO) 1.1 % (0-1); EOSINOPHILS # (AUTO) 0.3 X10'3 (0-0.9); EOSINOPHILS % (AUTO) 4.8 % (0-6); HEMATOCRIT 34.3 % (35.0-45.0); HEMOGLOBIN 11.1 g/dl (12.0-16.0); LYMPHOCYTES # (AUTO) 2.2 X10'3 (1.1-4.8); MEAN CORPUSCULAR HEMOGLOBIN 25.2 PG (27.0-31.0); MEAN CORPUSCULAR HGB CONC 32.2 g/dL (33.0-36.5); MEAN CORPUSCULAR VOLUME 78.1 FL (78-98); MEAN PLATELET VOLUME 6.6 FL (7.4-10.4); MONOCYTES # (AUTO) 0.9 X10'3 (0-0.9); MONOCYTES % (AUTO) 13.2 % (2-12); NEUTROPHILS # (AUTO) 3.1 X10'3 (1.8-7.7); NEUTROPHILS % (AUTO) 46.9 % (42-75); PLATELET COUNT 320 X10'3 (140-440); RED BLOOD COUNT 4.39 X10'6 (4.20-5.60); RED CELL DISTRIBUTION WIDTH 16.3 % (11.5-14.5); WHITE BLOOD COUNT 6.6 X10'3 (4.5-11.0)
[2019-11-20 17:34] LABS: ALANINE AMINOTRANSFERASE 24 U/L (12-78); ALBUMIN 3.1 G/DL (3.4-5.0); ALBUMIN/GLOBULIN RATIO 0.8 (1.1-1.5); ALKALINE PHOSPHATASE 62 IU/L (46-116); ANION GAP 4 (8-16); ASPARTATE AMINO TRANSFERASE 15 U/L (10-37); BILIRUBIN,TOTAL 0.2 MG/DL (0.1-1.0); BLOOD UREA NITROGEN 14 MG/DL (7-18); BUN/CREATININE RATIO 21.5 (6.6-38.0); CHLORIDE 94 MMOL/L (99-107); CREATININE 0.65 MG/DL (0.40-0.90); GLUCOSE 95 MG/DL (70-104); POTASSIUM 4.7 MMOL/L (3.5-5.1); SODIUM 128 MMOL/L (135-145); TOTAL CARBON DIOXIDE 29.9 MMOL/L (24-32); eGFR 88 ML/MIN
--- NOTE | 2019-11-20 18:00 | NUR ---
[facility] [phone]
[2019-11-20 18:01] LABS: LIPASE 167 U/L (73-393)
[2019-11-20] MEDS ORDERED: normal saline 1000ml 1,000 ML IV ONE (18:10)
[2019-11-20] MEDS ORDERED: ondansetron/PF 4mg/2ml inj IV ONE (18:10)
[2019-11-20] MEDS ORDERED: morphine 4 MG/ML inj SYRINge IV ONE (18:10)
--- NOTE | 2019-11-20 23:34 | NUR ---
PHONED PT CAREGIVER AT [phone] TO COME TO PICK PATIENT UP MESSAGE LEFT .
--- NOTE | 2019-11-20 23:38 | NUR ---
PHONED [phone] SPOKE WITH ELISE WHO IS TO DIRECTOR COMMUNICATIONS PATIENT IN 20 MIN . Elise IS AWARE THE PATIENT HAS BEEN DISCHARGED AND WILL BE WAITING IN THE ER LOBBY .
[2019-11-20 23:50] VITALS: BP 134/68
== END 2019-11-20 23:45 | disposition home or self-care (01) ==
LOC: ER 16:45
DX: I12.9 Hypertensive chronic kidney disease with stage 1 through stage 4 chronic kidney disease, or unspecified chronic kidney disease (principal); R07.89 Other chest pain; I48.91 Unspecified atrial fibrillation; J44.9 Chronic obstructive pulmonary disease, unspecified; K21.9 Gastro-esophageal reflux disease without esophagitis; N18.9 Chronic kidney disease, unspecified; E03.9 Hypothyroidism, unspecified; G89.29 Other chronic pain; Z88.0 Allergy status to penicillin; Z88.5 Allergy status to narcotic agent; Z88.8 Allergy status to other drugs, medicaments and biological substances; Z79.899 Other long term (current) drug therapy
CPT/HCPCS: 36415; 71045; 80053; 83690; 83880; 84484; 85025; 93005; 96361; 96374; 96375; 99285; J2270; J2405; J7030

== ENCOUNTER 2020-01-13 19:28 | Emergency (ER) | payer MEDICARE, MEDICAID ==
[~2020-01-13] VITALS: Ht 154.9 cm; Wt 68.2 kg
[~2020-01-13 19:28] MED LIST changes: -AMLO-93 PO; +CARV-50 PO; -CARV12.529 PO; +NITR0.4T51 SL
[2020-01-13] MEDS ORDERED: aspirin 81mg tab.chew PO ONE (19:40)
[2020-01-13] MEDS ORDERED: HYDROcodone/acetaminophen 5mg/325mg tablet PO ONE (19:45)
[2020-01-13 20:01] LABS: BASOPHILS # (AUTO) 0.1 X10'3 (0-0.2); BASOPHILS % (AUTO) 1.1 % (0-1); EOSINOPHILS # (AUTO) 0.3 X10'3 (0-0.9); EOSINOPHILS % (AUTO) 4.8 % (0-6); HEMATOCRIT 32.3 % (35.0-45.0); HEMOGLOBIN 10.7 g/dl (12.0-16.0); LYMPHOCYTES # (AUTO) 2.3 X10'3 (1.1-4.8); MEAN CORPUSCULAR HEMOGLOBIN 25.9 PG (27.0-31.0); MEAN CORPUSCULAR HGB CONC 33.1 g/dL (33.0-36.5); MEAN CORPUSCULAR VOLUME 78.4 FL (78-98); MEAN PLATELET VOLUME 6.6 FL (7.4-10.4); MONOCYTES % (AUTO) 14.7 % (2-12); NEUTROPHILS # (AUTO) 3.2 X10'3 (1.8-7.7); NEUTROPHILS % (AUTO) 46.4 % (42-75); PLATELET COUNT 316 X10'3 (140-440); RED BLOOD COUNT 4.12 X10'6 (4.20-5.60); WHITE BLOOD COUNT 6.9 X10'3 (4.5-11.0)
[2020-01-13 20:10] LABS: PARTIAL THROMBOPLASTIN TIME 31 SECONDS (22-32)
[2020-01-13 20:13] LABS: ALANINE AMINOTRANSFERASE 23 U/L (12-78); ALBUMIN 3.2 G/DL (3.4-5.0); ALBUMIN/GLOBULIN RATIO 0.8 (1.1-1.5); ALKALINE PHOSPHATASE 67 IU/L (46-116); ANION GAP 7 (8-16); ASPARTATE AMINO TRANSFERASE 14 U/L (10-37); BILIRUBIN,TOTAL 0.2 MG/DL (0.1-1.0); BLOOD UREA NITROGEN 14 MG/DL (7-18); BUN/CREATININE RATIO 21.5 (6.6-38.0); CALCIUM 8.8 MG/DL (8.5-10.1); CHLORIDE 95 MMOL/L (99-107); CREATININE 0.65 MG/DL (0.40-0.90); GLUCOSE 93 MG/DL (70-104); POTASSIUM 3.8 MMOL/L (3.5-5.1); SODIUM 129 MMOL/L (135-145); TOTAL CARBON DIOXIDE 27.5 MMOL/L (24-32); eGFR 88 ML/MIN
[2020-01-13] MEDS ORDERED: fentaNYL/PF 50MCG/1 ML 2ML syringe IV ONE (20:45)
[2020-01-13 23:10] VITALS: BP 157/77
[2020-01-13] MEDS ORDERED: famotidine 20mg tablet PO ONE (23:20)
[2020-01-13] MEDS ORDERED: acetaminophen 325mg tablet PO ONE (23:20)
== END 2020-01-13 23:42 | disposition home or self-care (01) ==
LOC: ER 19:28
DX: R07.89 Other chest pain (principal); R06.02 Shortness of breath; I48.91 Unspecified atrial fibrillation; J44.9 Chronic obstructive pulmonary disease, unspecified; K21.9 Gastro-esophageal reflux disease without esophagitis; I12.9 Hypertensive chronic kidney disease with stage 1 through stage 4 chronic kidney disease, or unspecified chronic kidney disease; N18.9 Chronic kidney disease, unspecified; E03.9 Hypothyroidism, unspecified; G89.29 Other chronic pain; Z86.73 Personal history of transient ischemic attack (TIA), and cerebral infarction without residual deficits; Z88.0 Allergy status to penicillin; Z88.5 Allergy status to narcotic agent; Z88.8 Allergy status to other drugs, medicaments and biological substances; Z79.899 Other long term (current) drug therapy
CPT/HCPCS: 36415; 71045; 80053; 83735; 83880; 84484; 85025; 85610; 85730; 93005; 96374; 99285; J3010

== ENCOUNTER 2020-01-23 11:48 | Emergency (ER) | payer MEDICARE, MEDICAID ==
[~2020-01-23] VITALS: Ht 154.9 cm; Wt 74.1 kg
--- NOTE | 2020-01-23 11:57 | NUR ---
elsa [phone] admin for pt 6 bed residential home saying pt has been bouncing back and fourth between [facility] and [facility] and has had issues but in the end pt is fine and they can find nothing wrong with her. dianewarren states that [facility] suggested a psych eval maybe. dianewarren requested maybe we could look into getting her placed in a rehab center. charge nurse notified. will relay to pts nurse
[2020-01-23 13:20] LABS: BASOPHILS # (AUTO) 0.1 X10'3 (0-0.2); BASOPHILS % (AUTO) 1.2 % (0-1); EOSINOPHILS # (AUTO) 0.1 X10'3 (0-0.9); EOSINOPHILS % (AUTO) 2.3 % (0-6); HEMATOCRIT 30.5 % (35.0-45.0); HEMOGLOBIN 9.9 g/dl (12.0-16.0); LYMPHOCYTES % (AUTO) 22.9 % (21-51); MEAN CORPUSCULAR HEMOGLOBIN 25.5 PG (27.0-31.0); MEAN CORPUSCULAR HGB CONC 32.5 g/dL (33.0-36.5); MEAN CORPUSCULAR VOLUME 78.6 FL (78-98); MEAN PLATELET VOLUME 6.6 FL (7.4-10.4); MONOCYTES # (AUTO) 0.6 X10'3 (0-0.9); MONOCYTES % (AUTO) 13.6 % (2-12); NEUTROPHILS # (AUTO) 2.7 X10'3 (1.8-7.7); PLATELET COUNT 339 X10'3 (140-440); RED BLOOD COUNT 3.88 X10'6 (4.20-5.60); RED CELL DISTRIBUTION WIDTH 17.7 % (11.5-14.5); WHITE BLOOD COUNT 4.5 X10'3 (4.5-11.0)
[2020-01-23 13:24] LABS: ALANINE AMINOTRANSFERASE 41 U/L (12-78); ALBUMIN 2.9 G/DL (3.4-5.0); ALBUMIN/GLOBULIN RATIO 0.9 (1.1-1.5); ALKALINE PHOSPHATASE 43 IU/L (46-116); ANION GAP 6 (8-16); ASPARTATE AMINO TRANSFERASE 44 U/L (10-37); BILIRUBIN,TOTAL 0.3 MG/DL (0.1-1.0); BLOOD UREA NITROGEN 8 MG/DL (7-18); BUN/CREATININE RATIO 15.4 (6.6-38.0); CALCIUM 8.5 MG/DL (8.5-10.1); CHLORIDE 94 MMOL/L (99-107); CREATININE 0.52 MG/DL (0.40-0.90); GLUCOSE 85 MG/DL (70-104); LIPASE 67 U/L (73-393); POTASSIUM 3.9 MMOL/L (3.5-5.1); SODIUM 128 MMOL/L (135-145); TOTAL CARBON DIOXIDE 28.5 MMOL/L (24-32); TOTAL PROTEIN 6.3 G/DL (6.4-8.2); eGFR > 90 ML/MIN
[2020-01-23 13:52] LABS: CLARITY,URINE CLEAR (Clear); COLOR,URINE YELLOW (Yellow); GLUCOSE, URINE NEGATIVE (Neg); KETONES,URINE TRACE mg/dl (Neg); LEUKOCYTE ESTERASE ,URINE NEGATIVE (Neg); NITRITES, URINE NEGATIVE (Neg); OCCULT BLOOD,URINE NEGATIVE (Neg); PH,URINE 7.5 (4.8-8.0); PROTEIN,URINE NEGATIVE (Neg); UROBILINOGEN,URINE 0.2 E.U/dL (0.2-1.0)
[2020-01-23 13:58] LABS: UA COLLECTION TYPE STRAIGHT CATH
[2020-01-23] MEDS ORDERED: CIPR-260 PO (14:26)
--- NOTE | 2020-01-23 14:46 | NUR ---
TC TO ELISE, OPERATIONS DEVELOPER OF [employer]. ELISE INFORMED OF DC DIAGNOSIS AND PRESCRIPTION, AND NEED FOR FOLLOW-UP WITH PRIMARY CARE PROVIDER. TRANSPORTATION WILL BE ON THE WAY FOR [facility] DC HOME.
--- NOTE | 2020-01-23 15:04 | NUR ---
ELISE, FENDER MECHANIC, CALLED BACK AND REQUESTED THAT PRESCRIPTION BE CALLED IN TO [facility], SO THE MED CAN BE FILLED AND DELIVERED. [facility], NADINE, CALLED WITH PRESCRIPTION INFO.
[2020-01-23 15:54] VITALS: BP 167/75
== END 2020-01-23 15:58 | disposition home or self-care (01) ==
LOC: ER 11:49
DX: K52.89 Other specified noninfective gastroenteritis and colitis (principal); R10.84 Generalized abdominal pain; I48.91 Unspecified atrial fibrillation; J44.9 Chronic obstructive pulmonary disease, unspecified; K21.9 Gastro-esophageal reflux disease without esophagitis; I12.9 Hypertensive chronic kidney disease with stage 1 through stage 4 chronic kidney disease, or unspecified chronic kidney disease; N18.9 Chronic kidney disease, unspecified; E03.9 Hypothyroidism, unspecified; G89.29 Other chronic pain; Z86.73 Personal history of transient ischemic attack (TIA), and cerebral infarction without residual deficits; Z86.69 Personal history of other diseases of the nervous system and sense organs; Z88.0 Allergy status to penicillin; Z88.5 Allergy status to narcotic agent; Z88.6 Allergy status to analgesic agent; Z88.8 Allergy status to other drugs, medicaments and biological substances; Z79.2 Long term (current) use of antibiotics; Z79.899 Other long term (current) drug therapy
CPT/HCPCS: 36415; 74176; 80053; 81003; 83690; 85025; 99284

== ENCOUNTER 2020-01-28 10:21 | Emergency (ER) | payer MEDICARE, MEDICAID ==
[~2020-01-28] VITALS: Ht 139.7 cm; Wt 64.5 kg
[~2020-01-28 10:21] MED LIST changes: +CIPR-260 PO
[2020-01-28] MEDS ORDERED: acetaminophen 325mg tablet PO ONE (11:00)
[2020-01-28] MEDS ORDERED: ondansetron 4mg rapidly disintigrating tab PO ONE (11:05)
[2020-01-28 11:34] LABS: BASOPHILS # (AUTO) 0.1 X10'3 (0-0.2); BASOPHILS % (AUTO) 1.4 % (0-1); EOSINOPHILS # (AUTO) 0.1 X10'3 (0-0.9); EOSINOPHILS % (AUTO) 1.9 % (0-6); HEMATOCRIT 29.3 % (35.0-45.0); HEMOGLOBIN 9.7 g/dl (12.0-16.0); LYMPHOCYTES # (AUTO) 1.3 X10'3 (1.1-4.8); LYMPHOCYTES % (AUTO) 23.8 % (21-51); MEAN CORPUSCULAR HEMOGLOBIN 26.1 PG (27.0-31.0); MEAN CORPUSCULAR HGB CONC 33.1 g/dL (33.0-36.5); MEAN CORPUSCULAR VOLUME 78.8 FL (78-98); MEAN PLATELET VOLUME 6.6 FL (7.4-10.4); MONOCYTES # (AUTO) 0.8 X10'3 (0-0.9); MONOCYTES % (AUTO) 14.3 % (2-12); NEUTROPHILS # (AUTO) 3.3 X10'3 (1.8-7.7); NEUTROPHILS % (AUTO) 58.6 % (42-75); PLATELET COUNT 353 X10'3 (140-440); RED BLOOD COUNT 3.72 X10'6 (4.20-5.60); RED CELL DISTRIBUTION WIDTH 17.8 % (11.5-14.5); WHITE BLOOD COUNT 5.6 X10'3 (4.5-11.0)
[2020-01-28 11:50] LABS: ALANINE AMINOTRANSFERASE 54 U/L (12-78); ALBUMIN 3.1 G/DL (3.4-5.0); ALBUMIN/GLOBULIN RATIO 0.9 (1.1-1.5); ALKALINE PHOSPHATASE 45 IU/L (46-116); ANION GAP 6 (8-16); ASPARTATE AMINO TRANSFERASE 22 U/L (10-37); BILIRUBIN,TOTAL 0.3 MG/DL (0.1-1.0); BLOOD UREA NITROGEN 10 MG/DL (7-18); BUN/CREATININE RATIO 20.8 (6.6-38.0); CALCIUM 8.9 MG/DL (8.5-10.1); CHLORIDE 94 MMOL/L (99-107); CREATININE 0.48 MG/DL (0.40-0.90); GLUCOSE 92 MG/DL (70-104); POTASSIUM 3.3 MMOL/L (3.5-5.1); SODIUM 129 MMOL/L (135-145); TOTAL CARBON DIOXIDE 29.1 MMOL/L (24-32); TOTAL PROTEIN 6.6 G/DL (6.4-8.2); eGFR > 90 ML/MIN
[2020-01-28] MEDS ORDERED: potassium Cl 20 mEq SR tablet PO STA (12:16)
[2020-01-28] MEDS ORDERED: normal saline 1000ML IV soln IVB ONE (12:20)
--- NOTE | 2020-01-28 13:24 | NUR ---
Patient resting comfortably in bed without complaint. IV started fluids and potassium given. Covid swab collected.
[2020-01-28] MEDS ORDERED: morphine 4 MG/ML inj SYRINge IV ONE (14:35)
--- NOTE | 2020-01-28 15:10 | NUR ---
Pt IV infiltrated. New IV placed and pt medicated for pain.
[2020-01-28 18:30] VITALS: BP 129/54
== END 2020-01-28 20:21 | disposition home or self-care (01) ==
LOC: ER 10:21
DX: B34.9 Viral infection, unspecified (principal); J32.9 Chronic sinusitis, unspecified; R51.9 Headache, unspecified; I48.91 Unspecified atrial fibrillation; J44.9 Chronic obstructive pulmonary disease, unspecified; K21.9 Gastro-esophageal reflux disease without esophagitis; N18.9 Chronic kidney disease, unspecified; E03.9 Hypothyroidism, unspecified; G89.29 Other chronic pain; I12.9 Hypertensive chronic kidney disease with stage 1 through stage 4 chronic kidney disease, or unspecified chronic kidney disease; Z86.69 Personal history of other diseases of the nervous system and sense organs; Z86.73 Personal history of transient ischemic attack (TIA), and cerebral infarction without residual deficits; Z88.0 Allergy status to penicillin; Z88.5 Allergy status to narcotic agent; Z88.6 Allergy status to analgesic agent; Z88.8 Allergy status to other drugs, medicaments and biological substances; Z79.899 Other long term (current) drug therapy
CPT/HCPCS: 36415; 70450; 71045; 80053; 84145; 85025; 87502; 87503; 87635; 96374; 99285; C9803; J2270; J7030; 99283

== ENCOUNTER 2020-01-29 19:30 | Emergency (ER) | payer MEDICARE, MEDICAID ==
[~2020-01-29] VITALS: Ht 162.6 cm; Wt 70.0 kg
[2020-01-29 19:40] VITALS: BP 193/78
--- NOTE | 2020-01-29 21:41 | NUR ---
Pt. found by tech earlier completely naked, tech gave pt. a gown which pt. put on. Pt. has been refusing to wear fall risk band and keeps taking band off. Pt. found a second time completely naked by registration pt. placed in new gown by RN. Pt. states "I dont want to wear any clothes", pt. advised she must wear clothes.
[2020-01-29] MEDS ORDERED: acetaminophen 325mg tablet PO ONE (22:40)
== END 2020-01-29 23:20 | disposition home or self-care (01) ==
LOC: ER 19:31
DX: R51.9 Headache, unspecified (principal); I48.91 Unspecified atrial fibrillation; J44.9 Chronic obstructive pulmonary disease, unspecified; K21.9 Gastro-esophageal reflux disease without esophagitis; E03.9 Hypothyroidism, unspecified; G89.29 Other chronic pain; I12.9 Hypertensive chronic kidney disease with stage 1 through stage 4 chronic kidney disease, or unspecified chronic kidney disease; N18.9 Chronic kidney disease, unspecified; Z86.73 Personal history of transient ischemic attack (TIA), and cerebral infarction without residual deficits; Z88.0 Allergy status to penicillin; Z88.5 Allergy status to narcotic agent; Z88.6 Allergy status to analgesic agent; Z79.899 Other long term (current) drug therapy; Z59.0 Homelessness
CPT/HCPCS: 99283

== ENCOUNTER 2020-01-31 12:20 | Emergency (ER) | payer MEDICARE, MEDICAID ==
--- NOTE | 2020-01-31 13:28 | NUR ---
Patients home companion called Katia. She reports that the doctor wants her to be looked at for other medical issues that may exacerbate her mental health issues. More and more frequently she is making up stories. She was telling people that she is homeless and she is not. She has been refusing her medications. One was for HTN, one for her stomach and one for seizures. The reason she gave was because the other pills 'are not clear'. History of mild congnitive delay.
--- NOTE | 2020-01-31 14:13 | NUR ---
training administrator spoke to patient care representative and this is a common complaint. Needs detailed discharge paperwork to get patient more care at home.
[2020-01-31 17:24] VITALS: BP 174/82
--- NOTE | 2020-01-31 17:53 | NUR ---
Call to Katia Herr [phone], states she will call back with ride contact # and name.
--- NOTE | 2020-01-31 19:12 | NUR ---
pt wheeled to lobby for nurys heard to trasport home . pt was able to ambulate from wheel chair to car .
== END 2020-01-31 19:13 | disposition home or self-care (01) ==
LOC: ER 12:21
DX: R10.2 Pelvic and perineal pain (principal); I48.91 Unspecified atrial fibrillation; J44.9 Chronic obstructive pulmonary disease, unspecified; K21.9 Gastro-esophageal reflux disease without esophagitis; E03.9 Hypothyroidism, unspecified; G89.29 Other chronic pain; I12.9 Hypertensive chronic kidney disease with stage 1 through stage 4 chronic kidney disease, or unspecified chronic kidney disease; N18.9 Chronic kidney disease, unspecified; Z86.73 Personal history of transient ischemic attack (TIA), and cerebral infarction without residual deficits; Z88.0 Allergy status to penicillin; Z88.5 Allergy status to narcotic agent; Z88.6 Allergy status to analgesic agent; Z88.7 Allergy status to serum and vaccine; Z79.899 Other long term (current) drug therapy
CPT/HCPCS: 99283

== ENCOUNTER 2020-03-02 15:03 | Emergency (ER) | payer MEDICARE, MEDICAID ==
[~2020-03-02] VITALS: Ht 142.2 cm; Wt 71.8 kg
[2020-03-02 16:24] LABS: HEMOGLOBIN 9.9 g/dl (12.0-16.0); MEAN CORPUSCULAR HGB CONC 32.1 g/dL (33.0-36.5); MEAN PLATELET VOLUME 6.8 FL (7.4-10.4)
[2020-03-02 16:26] LABS: BASOPHILS # (AUTO) 0.1 X10'3 (0-0.2); BASOPHILS % (AUTO) 0.8 % (0-1); EOSINOPHILS # (AUTO) 0.2 X10'3 (0-0.9); EOSINOPHILS % (AUTO) 2.9 % (0-6); HEMATOCRIT 30.9 % (35.0-45.0); LYMPHOCYTES # (AUTO) 1.6 X10'3 (1.1-4.8); LYMPHOCYTES % (AUTO) 22.3 % (21-51); MEAN CORPUSCULAR HEMOGLOBIN 24.8 PG (27.0-31.0); MEAN CORPUSCULAR VOLUME 77.2 FL (78-98); MONOCYTES # (AUTO) 0.9 X10'3 (0-0.9); MONOCYTES % (AUTO) 13.4 % (2-12); NEUTROPHILS # (AUTO) 4.3 X10'3 (1.8-7.7); NEUTROPHILS % (AUTO) 60.6 % (42-75); PLATELET COUNT 360 X10'3 (140-440); RED CELL DISTRIBUTION WIDTH 17.1 % (11.5-14.5); WHITE BLOOD COUNT 7.1 X10'3 (4.5-11.0)
[2020-03-02 16:37] LABS: PARTIAL THROMBOPLASTIN TIME 30 SECONDS (22-32)
[2020-03-02 16:42] LABS: ALANINE AMINOTRANSFERASE 18 U/L (12-78); ALBUMIN 3.4 G/DL (3.4-5.0); ALBUMIN/GLOBULIN RATIO 0.9 (1.1-1.5); ALKALINE PHOSPHATASE 65 IU/L (46-116); ANION GAP 7 (8-16); ASPARTATE AMINO TRANSFERASE 16 U/L (10-37); BILIRUBIN,TOTAL 0.1 MG/DL (0.1-1.0); BLOOD UREA NITROGEN 16 MG/DL (7-18); BUN/CREATININE RATIO 22.9 (6.6-38.0); CALCIUM 9.3 MG/DL (8.5-10.1); CHLORIDE 104 MMOL/L (99-107); GLUCOSE 83 MG/DL (70-104); LIPASE 80 U/L (73-393); POTASSIUM 4.2 MMOL/L (3.5-5.1); SODIUM 138 MMOL/L (135-145); TOTAL CARBON DIOXIDE 27.5 MMOL/L (24-32); TOTAL PROTEIN 7.4 G/DL (6.4-8.2); eGFR 81 ML/MIN
--- NOTE | 2020-03-02 16:54 | NUR ---
Katia [phone], pt's caregiver. She will be the pt's ride if the pt is dc'd.
[2020-03-02] MEDS ORDERED: MAGN100T6 PO (17:21)
[2020-03-02] MEDS ORDERED: DOCU240C26 PO (17:21)
[2020-03-02 17:29] LABS: CLARITY,URINE CLEAR (Clear); COLOR,URINE YELLOW (Yellow); GLUCOSE, URINE NEGATIVE (Neg); KETONES,URINE NEGATIVE (Neg); LEUKOCYTE ESTERASE ,URINE NEGATIVE (Neg); NITRITES, URINE POSITIVE (Neg); OCCULT BLOOD,URINE TRACE-INTACT (Neg); PH,URINE 7.5 (4.8-8.0); PROTEIN,URINE NEGATIVE (Neg); UROBILINOGEN,URINE 0.2 E.U/dL (0.2-1.0)
[2020-03-02 17:39] LABS: UA COLLECTION TYPE STRAIGHT CATH
[2020-03-02 17:40] LABS: BACTERIA,URINE 4+ /HPF (Neg); MUCUS STRANDS FEW /LPF (Neg); RBC,URINE 0-2 /HPF (0-2); SQUAMOUS EPITHELIAL CELL,UR NONE SEEN /LPF (FEW); WBC,URINE NONE SEEN /HPF (0-4)
--- NOTE | 2020-03-02 18:14 | NUR ---
Spoke with Katia, pt's caregiver. They will be here in 30-45 minutes to pick her up.
[2020-03-02 20:01] VITALS: BP 123/96
== END 2020-03-02 20:03 | disposition home or self-care (01) ==
LOC: ER 15:04
DX: K59.00 Constipation, unspecified (principal); R82.71 Bacteriuria; F03.90 Unspecified dementia, unspecified severity, without behavioral disturbance, psychotic disturbance, mood disturbance, and anxiety; I48.91 Unspecified atrial fibrillation; I10 Essential (primary) hypertension; J44.9 Chronic obstructive pulmonary disease, unspecified; K21.9 Gastro-esophageal reflux disease without esophagitis; N18.9 Chronic kidney disease, unspecified; E03.9 Hypothyroidism, unspecified; G89.29 Other chronic pain; Z98.890 Other specified postprocedural states; Z88.0 Allergy status to penicillin; Z91.048 Other nonmedicinal substance allergy status; Z88.6 Allergy status to analgesic agent; Z88.8 Allergy status to other drugs, medicaments and biological substances; Z79.2 Long term (current) use of antibiotics; Z79.899 Other long term (current) drug therapy
CPT/HCPCS: 36415; 71045; 74176; 80053; 81001; 83690; 84484; 85025; 85610; 85730; 86885; 86900; 86901; 87077; 87088; 87186; 93005; 99281; 99283; 99285

== ENCOUNTER 2020-04-24 10:07 | Emergency (ER) | payer MEDICARE, MEDICAID ==
[~2020-04-24] VITALS: Ht 139.7 cm; Wt 59.1 kg
[~2020-04-24 10:07] MED LIST changes: +DOCU240C26 PO; +LORA-657 PO; -LORA-660 PO; +MAGN100T6 PO
[2020-04-24 11:51] LABS: BASOPHILS # (AUTO) 0.1 X10'3 (0-0.2); BASOPHILS % (AUTO) 1.3 % (0-1); EOSINOPHILS # (AUTO) 0.4 X10'3 (0-0.9); EOSINOPHILS % (AUTO) 5.2 % (0-6); HEMATOCRIT 35.7 % (35.0-45.0); HEMOGLOBIN 11.3 g/dl (12.0-16.0); LYMPHOCYTES # (AUTO) 1.6 X10'3 (1.1-4.8); LYMPHOCYTES % (AUTO) 21.8 % (21-51); MEAN CORPUSCULAR HEMOGLOBIN 23.9 PG (27.0-31.0); MEAN CORPUSCULAR HGB CONC 31.7 g/dL (33.0-36.5); MEAN CORPUSCULAR VOLUME 75.4 FL (78-98); MEAN PLATELET VOLUME 7.6 FL (7.4-10.4); MONOCYTES # (AUTO) 0.8 X10'3 (0-0.9); MONOCYTES % (AUTO) 11.1 % (2-12); NEUTROPHILS # (AUTO) 4.5 X10'3 (1.8-7.7); NEUTROPHILS % (AUTO) 60.6 % (42-75); PLATELET COUNT 326 X10'3 (140-440); RED BLOOD COUNT 4.73 X10'6 (4.20-5.60); RED CELL DISTRIBUTION WIDTH 18.9 % (11.5-14.5); WHITE BLOOD COUNT 7.4 X10'3 (4.5-11.0)
[2020-04-24 12:09] LABS: ALANINE AMINOTRANSFERASE 14 U/L (12-78); ALBUMIN/GLOBULIN RATIO 0.7 (1.1-1.5); ALKALINE PHOSPHATASE 65 IU/L (46-116); ANION GAP 9 (8-16); ASPARTATE AMINO TRANSFERASE 10 U/L (10-37); BILIRUBIN,TOTAL 0.2 MG/DL (0.1-1.0); BLOOD UREA NITROGEN 19 MG/DL (7-18); BUN/CREATININE RATIO 21.6 (6.6-38.0); CALCIUM 10.5 MG/DL (8.5-10.1); CHLORIDE 98 MMOL/L (99-107); CREATININE 0.88 MG/DL (0.40-0.90); GLUCOSE 90 MG/DL (70-104); POTASSIUM 4.1 MMOL/L (3.5-5.1); SODIUM 137 MMOL/L (135-145); TOTAL CARBON DIOXIDE 30.2 MMOL/L (24-32); TOTAL PROTEIN 7.3 G/DL (6.4-8.2); eGFR 62 ML/MIN
[2020-04-24 12:37] LABS: ANISOCYTOSIS 2+; MICROCYTOSIS 1+; PLATELET ESTIMATE NORMAL
[2020-04-24 12:38] LABS: HYPOCHROMASIA 1+
--- NOTE | 2020-04-24 13:01 | NUR ---
spoke [employer] house attendant ester and stated will be able to leaf size picker pt in 2 hours. working on another ride and will call back if can get someone earlier.
[2020-04-24 14:23] VITALS: BP 111/62
== END 2020-04-24 14:25 | disposition home or self-care (01) ==
LOC: ER 10:08
DX: J02.9 Acute pharyngitis, unspecified (principal); R53.83 Other fatigue; R07.89 Other chest pain; E86.0 Dehydration; R50.9 Fever, unspecified; R53.1 Weakness; Z20.828 Contact with and (suspected) exposure to other viral communicable diseases; I48.91 Unspecified atrial fibrillation; J44.9 Chronic obstructive pulmonary disease, unspecified; K21.9 Gastro-esophageal reflux disease without esophagitis; I12.9 Hypertensive chronic kidney disease with stage 1 through stage 4 chronic kidney disease, or unspecified chronic kidney disease; N18.9 Chronic kidney disease, unspecified; F17.200 Nicotine dependence, unspecified, uncomplicated; Z86.73 Personal history of transient ischemic attack (TIA), and cerebral infarction without residual deficits; Z86.69 Personal history of other diseases of the nervous system and sense organs; G89.29 Other chronic pain; Z98.890 Other specified postprocedural states; Z88.0 Allergy status to penicillin; Z88.5 Allergy status to narcotic agent; Z88.6 Allergy status to analgesic agent; Z88.8 Allergy status to other drugs, medicaments and biological substances; Z79.2 Long term (current) use of antibiotics; Z79.899 Other long term (current) drug therapy
CPT/HCPCS: 36415; 80053; 85008; 85025; 87635; 99284; C9803

== ENCOUNTER 2020-05-04 18:53 | Emergency (ER) | payer MEDICARE, MEDICAID ==
[~2020-05-04] VITALS: Ht 162.6 cm; Wt 108.0 kg
[2020-05-04 19:21] LABS: BASOPHILS # (AUTO) 0.1 X10'3 (0-0.2); BASOPHILS % (AUTO) 1.2 % (0-1); EOSINOPHILS # (AUTO) 0.3 X10'3 (0-0.9); EOSINOPHILS % (AUTO) 5.1 % (0-6); HEMATOCRIT 32.9 % (35.0-45.0); HEMOGLOBIN 10.5 g/dl (12.0-16.0); LYMPHOCYTES # (AUTO) 2.1 X10'3 (1.1-4.8); LYMPHOCYTES % (AUTO) 37.9 % (21-51); MEAN CORPUSCULAR HEMOGLOBIN 23.8 PG (27.0-31.0); MEAN CORPUSCULAR VOLUME 74.5 FL (78-98); MEAN PLATELET VOLUME 7.4 FL (7.4-10.4); MONOCYTES # (AUTO) 0.8 X10'3 (0-0.9); MONOCYTES % (AUTO) 14.1 % (2-12); NEUTROPHILS # (AUTO) 2.3 X10'3 (1.8-7.7); NEUTROPHILS % (AUTO) 41.7 % (42-75); PLATELET COUNT 279 X10'3 (140-440); RED BLOOD COUNT 4.41 X10'6 (4.20-5.60); RED CELL DISTRIBUTION WIDTH 19.8 % (11.5-14.5); WHITE BLOOD COUNT 5.5 X10'3 (4.5-11.0)
[2020-05-04 19:39] LABS: ALANINE AMINOTRANSFERASE 16 U/L (12-78); ALBUMIN 2.9 G/DL (3.4-5.0); ALBUMIN/GLOBULIN RATIO 0.8 (1.1-1.5); ALKALINE PHOSPHATASE 61 IU/L (46-116); ANION GAP 6 (8-16); ASPARTATE AMINO TRANSFERASE 15 U/L (10-37); BILIRUBIN,TOTAL 0.2 MG/DL (0.1-1.0); BLOOD UREA NITROGEN 12 MG/DL (7-18); CALCIUM 8.7 MG/DL (8.5-10.1); CHLORIDE 98 MMOL/L (99-107); CREATININE 0.75 MG/DL (0.40-0.90); GLUCOSE 92 MG/DL (70-104); POTASSIUM 3.8 MMOL/L (3.5-5.1); SODIUM 132 MMOL/L (135-145); TOTAL PROTEIN 6.6 G/DL (6.4-8.2); VALPROATE 59 UG/ML (50-100); eGFR 75 ML/MIN
[2020-05-04 19:48] LABS: CLARITY,URINE SLIGHTLY CLOUDY (Clear); COLOR,URINE YELLOW (Yellow); GLUCOSE, URINE NEGATIVE (Neg); KETONES,URINE NEGATIVE (Neg); LEUKOCYTE ESTERASE ,URINE NEGATIVE (Neg); NITRITES, URINE NEGATIVE (Neg); OCCULT BLOOD,URINE NEGATIVE (Neg); PROTEIN,URINE NEGATIVE (Neg); UROBILINOGEN,URINE 0.2 E.U/dL (0.2-1.0)
[2020-05-04 19:54] LABS: UA COLLECTION TYPE STRAIGHT CATH
[2020-05-04 19:56] LABS: BACTERIA,URINE 3+ /HPF (Neg); MUCUS STRANDS NONE SEEN /LPF (Neg); RBC,URINE 0-2 /HPF (0-2); SQUAMOUS EPITHELIAL CELL,UR FEW /LPF (FEW); WBC,URINE 0-4 /HPF (0-4)
[2020-05-04 19:59] LABS: URINE AMPHETAMINE SCREEN NEGATIVE (Neg); URINE BARBITUATE SCREEN POSITIVE (Neg); URINE BENZODIAZEPINES SCREEN NEGATIVE (Neg); URINE CANNABINOID SCREEN NEGATIVE (Neg); URINE COCAINE SCREEN NEGATIVE (Neg); URINE METHADONE SCREEN NEGATIVE (Neg); URINE OPIATE SCREEN POSITIVE (Neg); URINE PHENCYCLIDINE SCREEN NEGATIVE (Neg)
[2020-05-04 20:10] LABS: ANISOCYTOSIS 2+; HYPOCHROMASIA 1+; MICROCYTOSIS 1+; PLATELET ESTIMATE NORMAL; TARGET CELLS FEW
[2020-05-04 20:11] LABS: ELLIPTOCYTES FEW
--- NOTE | 2020-05-04 21:11 | NUR ---
ATTEMPTED TO GET PT UP TO AMBULATED, SAT ON EDGE OF BED, STATES SHE "WAS GOING TO GET SICK" AND LAYED BACK DOWN IN BED.
[2020-05-04 21:31] VITALS: BP 155/75
== END 2020-05-04 21:48 | disposition home or self-care (01) ==
LOC: ER 18:54
DX: R10.84 Generalized abdominal pain (principal); I48.91 Unspecified atrial fibrillation; J44.9 Chronic obstructive pulmonary disease, unspecified; I13.0 Hypertensive heart and chronic kidney disease with heart failure and stage 1 through stage 4 chronic kidney disease, or unspecified chronic kidney disease; N18.9 Chronic kidney disease, unspecified; I50.9 Heart failure, unspecified; E03.9 Hypothyroidism, unspecified; G89.29 Other chronic pain; K21.9 Gastro-esophageal reflux disease without esophagitis; F03.90 Unspecified dementia, unspecified severity, without behavioral disturbance, psychotic disturbance, mood disturbance, and anxiety; Z86.73 Personal history of transient ischemic attack (TIA), and cerebral infarction without residual deficits; Z98.890 Other specified postprocedural states; Z86.69 Personal history of other diseases of the nervous system and sense organs; Z88.0 Allergy status to penicillin; Z88.6 Allergy status to analgesic agent; Z91.030 Bee allergy status; Z88.8 Allergy status to other drugs, medicaments and biological substances; Z79.899 Other long term (current) drug therapy; W18.39XA Other fall on same level, initial encounter; Y93.89 Activity, other specified; Y92.098 Other place in other non-institutional residence as the place of occurrence of the external cause; Y99.8 Other external cause status
CPT/HCPCS: 36415; 70450; 72125; 80053; 80164; 80305; 81001; 85008; 85025; 87077; 87088; 87186; 93005; 99285

== ENCOUNTER 2020-05-07 09:59 | Day surgery (SDC) | payer MEDICARE, MEDICAID ==
[~2020-05-07] VITALS: Ht 162.6 cm; Wt 59.1 kg
[2020-05-07 10:12] VITALS: BP 138/73
[2020-05-07] MEDS ORDERED: AMLO1CAP10 PO (10:24)
[2020-05-07] MEDS ORDERED: ATOR40TA72 (10:24)
[2020-05-07] MEDS ORDERED: LACT1TAB21 PO (10:25)
[2020-05-07] MEDS ORDERED: LEVO50TA8 PO (10:27)
[2020-05-07] MEDS ORDERED: DIVA-74 PO (10:27)
[2020-05-07] MEDS ORDERED: PRIM50TA27 PO (10:28)
[2020-05-07] MEDS ORDERED: CALC-157 PO (10:29)
[2020-05-07] MEDS ORDERED: VIT D3 (10:30)
[2020-05-07] MEDS ORDERED: OMEP20CA15 PO (10:30)
[2020-05-07] MEDS ORDERED: OMEP-50 PO (10:32)
[2020-05-07] MEDS ORDERED: LORA-657 PO (10:33)
[2020-05-07] MEDS ORDERED: ROPI3TAB PO (10:34)
[2020-05-07] MEDS ORDERED: MELA5TAB12 PO (10:35)
[2020-05-07] MEDS ORDERED: CARV-50 PO (10:35)
[2020-05-07] MEDS ORDERED: PARO10TA85 PO (10:36)
[2020-05-07] MEDS ORDERED: TRAZ-251 PO (10:37)
[2020-05-07] MEDS ORDERED: ACET-1017 PO (10:39)
[2020-05-07] MEDS ORDERED: HYDR-3965 PO (10:40)
[2020-05-07] MEDS ORDERED: NITR0.4T51 SL (10:41)
[2020-05-07] MEDS ORDERED: FLUT1DIS INH (10:42)
[2020-05-07] MEDS ORDERED: POLY119P2 PO (10:42)
[2020-05-07] MEDS ORDERED: DOCU100C40 PO (10:43)
[2020-05-07] MEDS ORDERED: MIDAZolam 5mg/5ml vial ONE (11:29)
[2020-05-07] MEDS ORDERED: fentaNYL/PF 50MCG/1 ML 2ML syringe ONE (11:29)
[2020-05-07 12:08] VITALS: BP 82/39
[2020-05-07 12:18] VITALS: BP 77/45
[2020-05-07 12:28] VITALS: BP 96/54
[2020-05-07 12:38] VITALS: BP 114/59
== END 2020-05-07 12:59 | disposition home or self-care (01) ==
LOC: GI LAB 09:59
PROVIDERS: ATTEND Internal Medicine Gastroenterology
DX: R93.3 Abnormal findings on diagnostic imaging of other parts of digestive tract (principal); D12.5 Benign neoplasm of sigmoid colon; D12.8 Benign neoplasm of rectum; K64.8 Other hemorrhoids; J43.9 Emphysema, unspecified; I48.91 Unspecified atrial fibrillation; F17.210 Nicotine dependence, cigarettes, uncomplicated; Z86.73 Personal history of transient ischemic attack (TIA), and cerebral infarction without residual deficits; Z79.899 Other long term (current) drug therapy; Z86.010 Personal history of colon polyps
CPT/HCPCS: 45380; 45385; 99153; C1773; G0500; J2250; J3010; J7040; 88305; 99152; A4620

== ENCOUNTER 2020-06-07 17:47 | Emergency (ER) | payer MEDICARE, MEDICAID ==
[~2020-06-07] VITALS: Ht 144.8 cm; Wt 55.0 kg
[~2020-06-07 17:47] MED LIST changes: +ACET-1017 PO; -ACET-75 PO; +AMLO1CAP10 PO; -ATOR20TA66 PO; +ATOR40TA72; -CALC-1074 PO; +CALC-157 PO; -CIPR-260 PO; -CYCL-394 PO; -DOCU240C26 PO; -GABA-532 PO; +HYDR-3965 PO; -LACT1CAP57 PO; +LACT1TAB21 PO; -LEVO25TA2 PO; +LEVO50TA8 PO; -MAGN100T6 PO; +OMEP-50 PO; +PARO10TA85 PO; +POLY119P2 PO; -POLY17PO10 PO; -ROPI1TAB6 PO; +ROPI3TAB PO; +TRAZ-251 PO; +VIT D3
[2020-06-07] MEDS ORDERED: proCHLORperazine 10 MG/2 ml inj IV ONE (18:15)
[2020-06-07 18:55] LABS: BASOPHILS # (AUTO) 0.1 X10'3 (0-0.2); BASOPHILS % (AUTO) 1.5 % (0-1); EOSINOPHILS # (AUTO) 0.2 X10'3 (0-0.9); HEMATOCRIT 30.5 % (35.0-45.0); HEMOGLOBIN 9.9 g/dl (12.0-16.0); LYMPHOCYTES # (AUTO) 2.2 X10'3 (1.1-4.8); LYMPHOCYTES % (AUTO) 41.6 % (21-51); MEAN CORPUSCULAR HEMOGLOBIN 24.8 PG (27.0-31.0); MEAN CORPUSCULAR HGB CONC 32.5 g/dL (33.0-36.5); MEAN CORPUSCULAR VOLUME 76.3 FL (78-98); MEAN PLATELET VOLUME 7.6 FL (7.4-10.4); MONOCYTES # (AUTO) 0.9 X10'3 (0-0.9); MONOCYTES % (AUTO) 16.5 % (2-12); NEUTROPHILS # (AUTO) 1.9 X10'3 (1.8-7.7); NEUTROPHILS % (AUTO) 36.4 % (42-75); PLATELET COUNT 266 X10'3 (140-440); RED CELL DISTRIBUTION WIDTH 21.9 % (11.5-14.5); WHITE BLOOD COUNT 5.2 X10'3 (4.5-11.0)
[2020-06-07 19:03] LABS: CLARITY,URINE CLEAR (Clear); COLOR,URINE YELLOW (Yellow); GLUCOSE, URINE NEGATIVE (Neg); KETONES,URINE NEGATIVE (Neg); LEUKOCYTE ESTERASE ,URINE NEGATIVE (Neg); NITRITES, URINE NEGATIVE (Neg); OCCULT BLOOD,URINE NEGATIVE (Neg); PH,URINE 6.5 (4.8-8.0); PROTEIN,URINE NEGATIVE (Neg); UA COLLECTION TYPE STRAIGHT CATH; UROBILINOGEN,URINE 0.2 E.U/dL (0.2-1.0)
[2020-06-07 19:06] LABS: ALANINE AMINOTRANSFERASE 15 U/L (12-78); ALBUMIN 2.9 G/DL (3.4-5.0); ALBUMIN/GLOBULIN RATIO 0.7 (1.1-1.5); ALKALINE PHOSPHATASE 55 IU/L (46-116); ANION GAP 5 (8-16); ASPARTATE AMINO TRANSFERASE 12 U/L (10-37); BILIRUBIN,TOTAL 0.1 MG/DL (0.1-1.0); BLOOD UREA NITROGEN 7 MG/DL (7-18); BUN/CREATININE RATIO 11.5 (6.6-38.0); CALCIUM 8.9 MG/DL (8.5-10.1); CHLORIDE 100 MMOL/L (99-107); CREATININE 0.61 MG/DL (0.40-0.90); GLUCOSE 90 MG/DL (70-104); LIPASE 130 U/L (73-393); SODIUM 135 MMOL/L (135-145); TOTAL CARBON DIOXIDE 29.9 MMOL/L (24-32); TOTAL PROTEIN 6.8 G/DL (6.4-8.2); eGFR > 90 ML/MIN
[2020-06-07] MEDS ORDERED: potassium Cl 20 mEq SR tablet PO STA (19:23)
[2020-06-07] MEDS ORDERED: HYDROcodone/acetaminophen 5mg/325mg tablet PO ONE (19:25)
[2020-06-07 19:54] VITALS: BP 148/67
[2020-06-07 20:06] LABS: ANISOCYTOSIS 3+; ELLIPTOCYTES FEW; MICROCYTOSIS 1+; PLATELET ESTIMATE NORMAL; POLYCHROMASIA FEW; SCHISTOCYTES FEW
== END 2020-06-07 21:00 | disposition home or self-care (01) ==
LOC: ER 17:48
DX: R10.84 Generalized abdominal pain (principal); E87.6 Hypokalemia; R19.7 Diarrhea, unspecified; R31.9 Hematuria, unspecified; R50.9 Fever, unspecified; J44.9 Chronic obstructive pulmonary disease, unspecified; I48.91 Unspecified atrial fibrillation; I12.9 Hypertensive chronic kidney disease with stage 1 through stage 4 chronic kidney disease, or unspecified chronic kidney disease; N18.9 Chronic kidney disease, unspecified; G89.29 Other chronic pain; E03.9 Hypothyroidism, unspecified; K21.9 Gastro-esophageal reflux disease without esophagitis; Z86.69 Personal history of other diseases of the nervous system and sense organs; Z88.0 Allergy status to penicillin; Z91.030 Bee allergy status; Z88.5 Allergy status to narcotic agent; Z88.6 Allergy status to analgesic agent; Z88.8 Allergy status to other drugs, medicaments and biological substances; Z79.899 Other long term (current) drug therapy
CPT/HCPCS: 36415; 74176; 80053; 81003; 83690; 85008; 85025; 96374; 99284; J0780